=== PATIENT | male | born 1985 | race Caucasian/White ===

== ENCOUNTER 2016-11-01 16:56 | Emergency (ER) | payer OTHER ==
[2016-11-01 17:00] VITALS: BMI 24.2
[2016-11-01 17:07] VITALS: PULSE 89; TEMP 97.9; O2SAT 97
[2016-11-01] MEDS ORDERED: Oxycodone/Acetaminophen 5/325 mg Tab PO STA (17:57)
--- NOTE | 2016-11-01 18:09 | ED PDOC ---
Arrival/HPI - General Chief Complaint: Upper Extremity Problem/Injury Time Seen by Provider: 11/01/16 17:48 Historian: Patient - History of Present Illness Narrative History of Present Illness (Text): 11/01/16 17:30 This 30 yo male without significant medical history, presents to this ED c/o left arm, and left lower leg pain x 3 months. Patient stated pain started about 9 months ago. Pain has been gradually worsen since onset of pain. Patient admits sciatica pain x 2 years ago, in which he had a an injection, which it relief his symptoms. Patient denies trauma, neck injury, rash, MOCK, diplopia, dysarthria, cms, n/v, cp, sob, GI/ incontinence, saddle anesthesia, urinary retention, dizziness, or abnormal gait. Melter Operator: Su Leach [id number] Time/Duration: Prior to Arrival Context: Home Past Medical History - Provider Review Nursing Documentation Reviewed: Yes - Travel History Have you recently traveled outside [place] w/in the past 3 mons?: No - Past History Past History: Non-Contributing - Musculoskeletal/Rheumatological Hx Back Pain: Yes (2 years ago) - Psychiatric Hx Substance Use: No Family/Social History - Physician Review Nursing Documentation Reviewed: Yes Family/Social History: No Known Family HX Smoking Status: occasionally smokes Hx Alcohol Use: Yes (socially) Frequency of alcohol use: Socially Hx Substance Use: Yes (2 years ago smoke herb in [place]) Allergies/Home Meds Allergies/Adverse Reactions: Allergies No Known Allergies Allergy (Verified 11/01/16 17:00) Review of Systems - Review of Systems Constitutional: Normal. absent: Fatigue, Weight Change, Fevers, Night Sweats Eyes: Normal ENT: Normal Respiratory: Normal. absent: SOB, Cough, Sputum, Wheezing Cardiovascular: Normal. absent: Chest Pain, Palpitations, Edema Gastrointestinal: Normal. absent: Abdominal Pain, Nausea, Vomiting Genitourinary Male: Normal. absent: Dysuria, Frequency, Hematuria Musculoskeletal: Other (see hpi) Skin: Normal. absent: Rash Neurological: Normal. absent: Headache, Dizziness, Focal Weakness, Gait Changes , Speech Changes, Facial Droop, Disequilibrium, Seizure Endocrine: Normal Hemo/Lymphatic: Normal Psychiatric: Normal Physical Exam Vital Signs Temp Pulse Resp BP Pulse Ox 11/01/16 19:00 16 108/65 11/01/16 17:01 97.9 F 89 17 119/73 97 Temperature: Afebrile Blood Pressure: Normal Pulse: Regular Respiratory Rate: Normal Appearance: Positive for: Well-Appearing, Non-Toxic, Comfortable Pain Distress: None Mental Status: Positive for: Alert and Oriented X 3 - Systems Exam Head: Present: Atraumatic, Normocephalic Pupils: Present: PERRL Extroacular Muscles: Present: EOMI Conjunctiva: Present: Normal Mouth: Present: Moist Mucous Membranes Neck: Present: Normal Range of Motion Respiratory/Chest: Present: Clear to Auscultation, Good Air Exchange. No: Respiratory Distress, Accessory Muscle Use, Wheezes, Retracting, Rhonchi Cardiovascular: Present: Regular Rate and Rhythm, Normal S1, S2. No: Murmurs Abdomen: Present: Normal Bowel Sounds. No: Tenderness, Distention, Peritoneal Signs, Rebound, Guarding Back: Present: Normal Inspection Upper Extremity: Present: Normal Inspection, Normal ROM, NORMAL PULSES, Neurovascularly Intact, Capillary Refill < 2s. No: Cyanosis, Edema Lower Extremity: Present: Normal Inspection, NORMAL PULSES, Normal ROM, Neurovascularly Intact, Capillary Refill < 2 s. No: Edema, CALF TENDERNESS, Temperature Abnormalties Neurological: Present: GCS=15, CN II-XII Intact, Speech Normal, Motor Func Grossly Intact, Normal Sensory Function, Normal Cerebellar Funct, Norm Deep Tendon Reflexes, Gait Normal, Memory Normal Skin: Present: Warm, Dry, Normal Color. No: Rashes Psychiatric: Present: Alert, Oriented x 3, Normal Insight, Normal Concentration Medical Decision Making ED Course and Treatment: 11/01/16 18:12 Patient came c/o left arm pain. During physical exam, patient stated left lower back pain. 11/01/16 19:18 Re-evaluation. Patient feels better. Discussed results and plan with patient who expresses understanding. All questions answered and there is agreement with the plan to discharge home with instructions. Patient stable for discharge. Return if symptoms persist or worsen. Patient understood to f/u clinic for further medical evaluation and testing Re-evaluation Time: 19:18 Reassessment Condition: Re-examined, Improved - RAD Interpretation Narrative RAD Interpretations (Text): 11/01/16 19:10 C-spine X-rays: No fx or subl. L-Spine X-rays: no fx or sublux. Radiology Orders: 11/01/16 17:58 CERVICAL SPINE >18YR W/OBLIQUE [RAD] Stat LS SPINE WITH OBL > 18 YRS OLD [RAD] Stat - Medication Orders Current Medication Orders: Discontinued Medications Ondansetron HCl (Zofran Odt) 8 mg PO STAT STA Stop: 11/01/16 17:58 Last Admin: 11/01/16 18:20 Dose: 8 mg Oxycodone/Acetaminophen (Percocet 5/325 Mg Tab) 1 tab PO STAT STA Stop: 11/01/16 17:58 Last Admin: 11/01/16 18:20 Dose: 1 tab Disposition/Present on Arrival - Present on Arrival Any Indicators Present on Arrival: No History of DVT/PE: No History of Uncontrolled Diabetes: No Urinary Catheter: No History of Decub. Ulcer: No History Surgical Site Infection Following: None - Disposition Have Diagnosis and Disposition been Completed?: Yes Diagnosis: Cervical radiculopathy, Back pain Disposition Time: 19:21 Patient Plan: Discharge Condition: IMPROVED Discharge Instructions (ExitCare): Chronic Back Pain (ED), Cervical Radiculopathy (ED) Additional Instructions: Call clinic doctor for follow up visit in 1-2 days. Take medication as instructed with food. Return to emergency if symptoms worsen. YOU NEED TO APPLY FOR [facility] BEFORE GOING TO CLINIC Prescriptions: Acetaminophen with Codeine [Tylenol with Codeine #3 Tablet] 1 each PO Q6H PRN # 15 tablet PRN Reason: Pain, Severe (8-10) Methylprednisolone [Medrol Dose Pack (21 tabs)] 4 mg PO DAILY #21 tab Referrals: [employer] [facility] [Outside] - Follow up with primary [facility] [Outside] - Follow up with primary
[2016-11-01 19:15] VITALS: BP 108/65; RESP 16
--- NOTE | 2016-11-02 11:32 | RAD ---
PROCEDURE: Cervical Spine Radiographs. HISTORY: Pain. COMPARISON: None. FINDINGS: BONES: Vertebral bodies maintained in height. Normal alignment maintained. Atlantoaxial articulation intact. Technically limited evaluation of odontoid process. DISC SPACES: Normal. SOFT TISSUES: Normal. No prevertebral soft tissue swelling. OTHER FINDINGS: None. IMPRESSION: No fracture/dislocation.
--- NOTE | 2016-11-02 11:33 | RAD ---
PROCEDURE: Radiographs of the Lumbar Spine. HISTORY: pain COMPARISON: No prior. FINDINGS: BONES: Normal alignment. No listhesis. No fracture. DISC SPACES: Unremarkable. OTHER FINDINGS: None. IMPRESSION: Unremarkable radiographs of the lumbar spine.
== END 2016-11-01 19:35 | disposition home or self-care (01) ==
LOC: ED 16:56
DX: M54.12 Radiculopathy, cervical region (principal); M54.9 Dorsalgia, unspecified

== ENCOUNTER 2016-11-14 12:52 | Emergency (ER) | payer OTHER ==
[2016-11-14 13:11] VITALS: BMI 22.8
[2016-11-14 13:13] VITALS: TEMP 98.8
--- NOTE | 2016-11-14 13:15 | ED PDOC ---
Arrival/HPI - General Chief Complaint: Abnormal Skin Integrity Time Seen by Provider: 11/14/16 13:15 Historian: Patient - History of Present Illness Narrative History of Present Illness (Text): 11/14/16 13:15 30 y/o male, pmh including cervical radiculopathy, nkda, c/o cyst removal from the perianal x 4 months. Pt. stated that he has a bump near the rectum region for 4-5 months, on and off pain, never have fever or chills, size never growing in size, no difficulty urinating or passing the stool, no fever or chills, no night sweat, no other medical or psychological complaints. Past Medical History - Provider Review Nursing Documentation Reviewed: Yes - Past History Past History: Non-Contributing - Musculoskeletal/Rheumatological Hx Back Pain: Yes (2 years ago) - Psychiatric Hx Substance Use: Yes (2 years ago smoke herb in [place]) Family/Social History - Physician Review Nursing Documentation Reviewed: Yes Family/Social History: Unknown Family HX Smoking Status: Never Smoked Hx Alcohol Use: Yes (socially) Frequency of alcohol use: Socially Hx Substance Use: Yes (2 years ago smoke herb in [place]) Allergies/Home Meds Allergies/Adverse Reactions: Allergies No Known Allergies Allergy (Verified 11/01/16 17:00) Review of Systems - Review of Systems Constitutional: absent: Fatigue, Fevers Eyes: absent: Vision Changes ENT: absent: Hearing Changes Respiratory: absent: SOB, Cough Cardiovascular: absent: Chest Pain Gastrointestinal: absent: Abdominal Pain, Vomiting, Appetite Changes Musculoskeletal: absent: Arthralgias, Back Pain Skin: Skin Lesions. absent: Rash, Pruritis, Laceration, Abscess, Ulcer, Cellulitis Neurological: absent: Headache Physical Exam Vital Signs Reviewed: Yes Vital Signs Temp Pulse Resp BP Pulse Ox 11/14/16 13:13 98.8 F 87 16 116/82 98 Temperature: Afebrile Blood Pressure: Normal Pulse: Regular Respiratory Rate: Normal Appearance: Positive for: Well-Appearing, Non-Toxic, Comfortable Pain Distress: Mild Mental Status: Positive for: Alert and Oriented X 3 - Systems Exam Head: Present: Atraumatic, Normocephalic Pupils: Present: PERRL Extroacular Muscles: Present: EOMI Conjunctiva: Present: Normal Mouth: Present: Moist Mucous Membranes Neck: Present: Normal Range of Motion Respiratory/Chest: Present: Clear to Auscultation, Good Air Exchange. No: Respiratory Distress, Accessory Muscle Use Cardiovascular: Present: Regular Rate and Rhythm, Normal S1, S2. No: Murmurs Abdomen: Present: Normal Bowel Sounds. No: Tenderness, Distention, Peritoneal Signs Rectal: Present: Normal Rectal Tone, Other (There is visible hard nodule less than 0.2cm diameter non-fluctuant nodule with mild skin abrasion, no fluctuant abscess. ). No: Occult Blood, Rectal Tenderness, Gross Blood, Melena, Hemorrhoids, Fissures Back: Present: Normal Inspection Upper Extremity: Present: Normal Inspection. No: Cyanosis, Edema Lower Extremity: Present: Normal Inspection. No: Edema Neurological: Present: GCS=15, CN II-XII Intact, Speech Normal Skin: Present: Warm, Dry, Normal Color. No: Rashes Psychiatric: Present: Alert, Oriented x 3, Normal Insight, Normal Concentration Medical Decision Making ED Course and Treatment: 11/14/16 13:39 -I performed the bed side sonogram which show there is no fluid fill cavity and physical examination show no fluctuancy. - PA / FREIGHT CONDUCTOR / Resident Statement MD/DO has reviewed & agrees with the documentation as recorded. Disposition/Present on Arrival - Present on Arrival Any Indicators Present on Arrival: No History of DVT/PE: No History of Uncontrolled Diabetes: No Urinary Catheter: No History of Decub. Ulcer: No History Surgical Site Infection Following: None - Disposition Have Diagnosis and Disposition been Completed?: Yes Diagnosis: Perianal lesion Disposition: HOME/ ROUTINE Disposition Time: 13:40 Patient Plan: Discharge Condition: GOOD Additional Instructions: Discharge home with keflex, bactrim ds, motrin, follow up with your own pmd and general surgeon within 2 days, return to the ER for any new or worsening signs or symptoms. Prescriptions: Cephalexin [cephalexin] 500 mg PO QID #40 cap Ibuprofen [Motrin Tab] 600 mg PO QID PRN #25 tab PRN Reason: Other Sulfamethoxazole/Trimethoprim [Bactrim DS 800 mg-160 mg] 1 tab PO BID #20 tab Referrals: Vic Argueta, [Primary Care Provider] - Follow up with primary Hitesh Bradford MD [Staff Provider] - [place] up with primary [facility] - Follow up with primary Forms: [employer] ([place]), WORK NOTE
[2016-11-14 17:40] VITALS: BP 122/76; PULSE 73; RESP 18; O2SAT 100
== END 2016-11-14 14:05 | disposition home or self-care (01) ==
LOC: ED 12:52
DX: K62.89 Other specified diseases of anus and rectum (principal)

== ENCOUNTER 2017-01-23 12:44 | Emergency (ER) | payer OTHER ==
[2017-01-23 12:44] VITALS: BMI 22.8
[2017-01-23 13:07] VITALS: TEMP 98.3; O2SAT 98
--- NOTE | 2017-01-23 13:58 | ED PDOC ---
Arrival/HPI - General Chief Complaint: ENT Problem Time Seen by Provider: 01/23/17 12:50 - History of Present Illness Narrative History of Present Illness (Text): 31 year old Uzbek speaking gentleman who presents with bilateral ear pain for one month. The ear pain worsens with high pitch noise, changes in atmospheric pressure, and upon awakening. He denies any sore throat, pain with swallowing, rhinorrhea, ottorhea, fever, or chills. He also complains of 6 months of left upper and lower extremity radicular symptoms. The shoulder pain worsens with movement while the left hip pain is intermittent, radiates down the left leg to the knee, and worsens with hip flexion. He also describes pain along the distribution of his belt, but denies any rash that fits a dermatomal pattern. [employer] were utilized for this encounter. 01/23/17 14:56 Past Medical History - Provider Review Nursing Documentation Reviewed: Yes - Past History Past History: Non-Contributing - Cardiac Hx Cardiac Disorders: No - Pulmonary Hx Respiratory Disorders: No - Neurological Hx Neurological Disorder: No - HEENT Hx HEENT Disorder: No - Renal Hx Renal Disorder: Yes Other/Comment: right kidney - Endocrine/Metabolic Hx Endocrine Disorders: No - Hematological/Oncological Hx Blood Disorders: No - Musculoskeletal/Rheumatological Hx Back Pain: Yes (2 years ago) - Gastrointestinal Hx Gastrointestinal Disorders: No - Genitourinary/Gynecological Hx Genitourinary Disorders: No - Psychiatric Hx Substance Use: Yes (2 years ago smoke herb in [place]) - Anesthesia Hx Anesthesia: No Hx Anesthesia Reactions: No Hx Malignant Hyperthermia: No Family/Social History - Physician Review Nursing Documentation Reviewed: Yes Family/Social History: No Known Family HX Smoking Status: Never Smoked Hx Alcohol Use: Yes (socially) Hx Substance Use: Yes (2 years ago smoke herb in [place]) Allergies/Home Meds Allergies/Adverse Reactions: Allergies No Known Allergies Allergy (Verified 11/01/16 17:00) Review of Systems - Review of Systems Constitutional: absent: Fatigue, Weight Change, Fevers Eyes: Normal. absent: Vision Changes, Photophobia ENT: Hearing Changes, Tinnitus, TMJ Pain. absent: Sore Throat, Rhinorrhea Respiratory: Normal. absent: SOB, Cough, Sputum, Wheezing Cardiovascular: Normal. absent: Chest Pain, Palpitations, Edema Gastrointestinal: Normal. absent: Abdominal Pain, Constipation, Diarrhea Musculoskeletal: Arthralgias Skin: Normal. absent: Rash, Skin Lesions Neurological: Gait Changes (antalgic gait). absent: Headache, Dizziness, Focal Weakness Hemo/Lymphatic: absent: Easy Bleeding, Easy Bruising Psychiatric: absent: Anxiety, Depression Physical Exam Vital Signs Temp Pulse Resp BP Pulse Ox 01/23/17 15:27 93 H 17 115/80 98 01/23/17 14:30 91 H 17 111/80 98 01/23/17 12:54 98.3 F 98 H 18 110/71 98 Temperature: Afebrile Blood Pressure: Normal Pulse: Regular Respiratory Rate: Normal Appearance: Positive for: Well-Appearing, Non-Toxic Pain Distress: Mild Mental Status: Positive for: Alert and Oriented X 3 - Systems Exam Head: Present: Atraumatic, Normocephalic Pupils: Present: PERRL Extroacular Muscles: Present: EOMI Conjunctiva: Present: Normal Ears: Present: Erythema (left), TM Bulging, Fluid, Other (left TM is erythematous with effusion and some bulging.) Mouth: Present: Other (posterior pharynx is without erythema and exudate) Pharnyx: No: ERYTHEMA, EXUDATE Neck: No: Lymphadenopathy Respiratory/Chest: Present: Clear to Auscultation, Good Air Exchange. No: Respiratory Distress Cardiovascular: Present: Regular Rate and Rhythm, Normal S1, S2 Upper Extremity: Present: Normal ROM, NORMAL PULSES. No: Swelling, Erythema Lower Extremity: Present: Normal Inspection Neurological: Present: CN II-XII Intact, Speech Normal, Motor Func Grossly Intact, Normal Sensory Function, Normal Cerebellar Funct, Norm Deep Tendon Reflexes, Other (MSR ) Skin: Present: Warm, Dry, Normal Color Lymphatic: No: Cervical Adenopathy Psychiatric: Present: Alert, Oriented x 3, Normal Insight Medical Decision Making ED Course and Treatment: Patient agreeable to taking antibiotics for Acute Otitis Media with effusion and steroids for current aggravation of his radicular symptoms. 01/23/17 15:48 - Medication Orders Current Medication Orders: Discontinued Medications Dexamethasone (Decadron Inj) 10 mg IM STAT STA Stop: 01/23/17 14:47 Last Admin: 01/23/17 15:04 Dose: 10 mg IM Administration Charges Document 01/23/17 15:04 SF (Rec: 01/23/17 15:04 SF [facility] [id number]) Injection Site MAR Injection Site Left Deltoid Charges for Administration # of IM Administrations 1 Disposition/Present on Arrival - Present on Arrival Any Indicators Present on Arrival: No History of DVT/PE: No History of Uncontrolled Diabetes: No Urinary Catheter: No History of Decub. Ulcer: No History Surgical Site Infection Following: None - Disposition Have Diagnosis and Disposition been Completed?: Yes Diagnosis: Acute otitis media, Radicular pain in left arm Disposition: HOME/ ROUTINE Disposition Time: 15:30 Condition: GOOD Discharge Instructions (ExitCare): Otitis Media (ED), Cervical Radiculopathy ( ED) Additional Instructions: 1) Take full course of antibiotics and other medication as directed. 2) Please return to the ED for any worsening of symptoms. Prescriptions: Amoxicillin/Clavulanate [Augmentin 875 MG-125 MG] 1 tab PO BID #14 tab Methylprednisolone [Medrol Dose Pack (21 tabs)] 4 mg PO ACHS #21 mg Referrals: PCP,NO [Primary Care Provider] - Follow up with primary Forms: [employer] ([place])
[2017-01-23 15:27] VITALS: RESP 17
[2017-01-23 15:29] VITALS: BP 115/80; PULSE 93
== END 2017-01-23 15:28 | disposition home or self-care (01) ==
LOC: ED 12:44
DX: H66.90 Otitis media, unspecified, unspecified ear (principal); M79.602 Pain in left arm
CPT/HCPCS: 96372; 99284; J1100

== ENCOUNTER 2017-03-29 18:19 | Emergency (ER) | payer OTHER ==
[2017-03-29 18:34] VITALS: BMI 23.6
--- NOTE | 2017-03-29 20:28 | ED PDOC ---
Arrival/HPI - General Historian: Patient - History of Present Illness Time/Duration: Other Symptom Onset: Gradual Symptom Course: Unchanged Activities at Onset: Rest - General Chief Complaint: Pain, Chronic Time Seen by Provider: 03/29/17 19:25 - History of Present Illness Narrative History of Present Illness (Text): Patient is a 31 year old, Welsh-speaking male with stated PMHx of cervical radiculopathy and anal pain presents complaining of pain secondary perianal abscess/lesion which he calls a fistula. Patient states he has had this pain for over a year and has visited the E.R twice for the same problem. He denies using any modalities to treat the pain except for the "capsules" he received during his last E.R visit. Patient states that the abscess drains daily and his having trouble sitting down. Patient also complains of subjective fever ( 10 days ago, which has resolved), dysuria/burning in the hip during urination and dizziness. Additionally, patient complains of ear fullness and hearing loss x 5 months. Patient has been seen in the ED for the same issue and was diagnosed with Ottitis Media, prescribed Augmentin and was asked to follow up with PMD and ENT. Patient stated he did not see specialist due to financial problems. Patient denies any chest pain, abdominal pain, SOB, nausea, or vomiting. (Robin Holm) Past Medical History - Provider Review Nursing Documentation Reviewed: Yes - Past History Past History: Non-Contributing - Infectious Disease Hx of Infectious Diseases: None - Cardiac Hx Cardiac Disorders: No - Pulmonary Hx Respiratory Disorders: No - Neurological Hx Neurological Disorder: No - HEENT Hx HEENT Disorder: No - Renal Hx Renal Disorder: Yes Other/Comment: right kidney - Endocrine/Metabolic Hx Endocrine Disorders: No - Hematological/Oncological Hx Blood Disorders: No - Musculoskeletal/Rheumatological Hx Back Pain: Yes (2 years ago) - Gastrointestinal Hx Gastrointestinal Disorders: No - Genitourinary/Gynecological Hx Genitourinary Disorders: No - Psychiatric Hx Substance Use: Yes (2 years ago smoke herb in [place]) - Anesthesia Hx Anesthesia: No Hx Anesthesia Reactions: No Hx Malignant Hyperthermia: No Family/Social History - Physician Review Nursing Documentation Reviewed: Yes Family/Social History: No Known Family HX Smoking Status: Never Smoked Hx Alcohol Use: Yes (socially) Hx Substance Use: Yes (2 years ago smoke herb in [place]) Allergies/Home Meds Allergies/Adverse Reactions: Allergies No Known Allergies Allergy (Verified 11/01/16 17:00) Review of Systems - Physician Review All systems were reviewed & negative as marked: Yes - Review of Systems ENT: Hearing Changes Respiratory: Normal. absent: SOB Cardiovascular: Normal. absent: Chest Pain Physical Exam Vital Signs Reviewed: Yes Temperature: Afebrile Blood Pressure: Normal Pulse: Tachycardic Respiratory Rate: Normal Appearance: Positive for: Uncomfortable Pain Distress: Moderate Mental Status: Positive for: Alert and Oriented X 3 - Systems Exam Head: Present: Atraumatic, Normocephalic Pupils: Present: PERRL Extroacular Muscles: Present: EOMI Conjunctiva: Present: Normal Ears: Present: Other (severe cerumen impaction. TM not visualized. ) Mouth: Present: Moist Mucous Membranes Pharnyx: Present: Normal Nose (External): Present: Atraumatic Neck: Present: Normal Range of Motion Respiratory/Chest: Present: Clear to Auscultation, Good Air Exchange. No: Wheezes Cardiovascular: Present: Regular Rate and Rhythm, Normal S1, S2. No: Murmurs Abdomen: Present: Normal Bowel Sounds. No: Tenderness, Distention, Peritoneal Signs Rectal: Present: Other Upper Extremity: Present: Capillary Refill < 2s. No: Edema Neurological: Present: GCS=15, Speech Normal Skin: Present: Other (left sided perianal tenderness with .5x.5 cm wound with surrounding erythema. No draiange) Lymphatic: Present: Cervical Adenopathy Psychiatric: Present: Alert, Oriented x 3 Vital Signs Temp Pulse Resp BP Pulse Ox 03/29/17 22:00 98.6 F 70 15 120/68 100 03/29/17 20:19 98.7 F 68 16 123/62 100 03/29/17 18:35 98.6 F 96 H 20 128/84 98 03/29/17 18:19 98.6 F 96 H 20 128/84 98 Medical Decision Making Reassessment Condition: Unchanged - Lab Interpretations I have reviewed the lab results: Yes - RAD Interpretation Gps Navigation Installer: Radiologist ED Course and Treatment: 03/29/17 22:51 Patient seen and examined with medical transcription. Afebrile, nontoxic appearing. Exam NOT consistent with sepsis. Abdomen soft and nontender. CT reveals no deep abscess, on exam, mild soft tissue erythema, currently no fluctuant mass, no rectal pain, no rectal bleeding. No urinary retention. Stressed need for ENT follow-up, although currently neuro intact with no focal motor or sensory deficits. Stressed need for follow-up with his pmd and surgical follow-up. No drainable abscess at this time. Will d/c with abx, f/u as reviewed specifically with top spotter. (Randee Spear) 31 year old male with PMHx of cervical radiculapathy and perianal abscess presents with painful superficial perianal abscess --CBC/CMP --UA --Pelvis CT Patient will need to establish care at one of [facility]. Will refer upon discharge. --Reassess and Disposition Reassesment: Urinalysis, CBC, CMP unremarkable. Pelvis CT MPRESSION: No evidence of perirectal abscess. Dictated By: Lne Altamirano MD Dictated Date/Time: 03/29/172209 Signed By: Len Altamirano MD Date Signed: 2209 Transcribed By: DARÍO Transcribe Date/Time : 03/29/17 Had thorough conversation with patient using interpretation system explaining his diagnoses and what we are doing to treat it. Advised patient to use Neosporin with lidocaine on the lesion to help with the pain. Patient also told to follow up at the [facility]. We will prescribe 7 days of Bactrim. Patient is stable for discharge. Gps Navigation Installer: Christa Galvin [id number] (Robin Holm) - Lab Interpretations Lab Results: 03/29/17 20:00 03/29/17 20:00 Lab Results 03/29/17 20:00: Urine Color Yellow, Urine Appearance Clear, Urine pH 7.0, Ur Specific [place] 1.010, Urine Protein Negative, Urine Glucose (UA) Negative, Urine Ketones Negative, Urine Blood Negative, Urine Nitrate Negative, Urine Bilirubin Negative, Urine Urobilinogen 0.2, Ur Leukocyte Esterase Negative 03/29/17 20:00: Sodium 140, Potassium 3.8, Chloride 105, Carbon Dioxide 22, Anion Gap 17, BUN 13, Creatinine 0.8, Est GFR ( Amer) > 60, Est GFR (Non- Af Amer) > 60, Random Glucose 94, Calcium 9.4, Total Bilirubin 0.6, AST 29, ALT 26, Alkaline Phosphatase 56, Total Protein 8.4 H, Albumin 5.1 H, Globulin 3.3, Albumin/Globulin Ratio 1.5 03/29/17 20:00: WBC 5.3, RBC 5.33, Hgb 14.8, Hct 43.8, MCV 82.2, MCH 27.8, MCHC 33.8, RDW 12.9, Plt Count 212, MPV 10.1, Gran % 27.9 L, Lymph % (Auto) 60.4 H, [place] % (Auto) 8.1 H, Eos % (Auto) 3.2, Baso % (Auto) 0.4, Gran # 1.49, Lymph # 3.2, [place] # 0.4, Eos # 0.2, Baso # 0.02 - RAD Interpretation Radiology Orders: 03/29/17 20:23 PELVIS W/O PO OR IV CONTRAST [CT] Stat Disposition/Present on Arrival - Present on Arrival Any Indicators Present on Arrival: No History of DVT/PE: No History of Uncontrolled Diabetes: No Urinary Catheter: No History of Decub. Ulcer: No History Surgical Site Infection Following: None - Disposition Have Diagnosis and Disposition been Completed?: Yes Disposition Time: 22:30 Patient Plan: Discharge - Disposition Diagnosis: Abscess of buttock Disposition: HOME/ ROUTINE Patient Problems: Current Active Problems Problem Status Onset Cellulitis of buttock Acute Condition: FAIR Discharge Instructions (ExitCare): Cellulitis (ED) Additional Instructions: Please follow up at the [facility]. The contact information and address is located in your discharge paperwork . Prescriptions: Sulfamethoxazole/Trimethoprim [Bactrim DS 800 mg-160 mg] 1 tab PO BID #14 tab Referrals: Vic Argueta, [Primary Care Provider] - Follow up with primary [facility] [Outside] - Follow up with primary Forms: [employer] (Mexican)
[2017-03-29 20:49] LABS: URINE BILIRUBIN NEGATIVE (NEGATIVE); URINE BLOOD NEGATIVE (NEGATIVE); URINE GLUCOSE (UA) NEGATIVE (NEGATIVE); URINE KETONE NEGATIVE (NEGATIVE); URINE LEUKOCYTE ESTERASE NEGATIVE Leu/uL (NEGATIVE); URINE PROTEIN NEGATIVE mg/dL (<30 mg/dL); URINE UROBILINOGEN 0.2 E.U./dL (<1 E.U./dL)
[2017-03-29 20:50] LABS: BASO # 0.02 K/mm3 (0.0-2.0); BASO % 0.4 % (0.0-3.0); EOS # 0.2 (0.0-0.7); EOS % 3.2 % (1.5-5.0); GRAN # 1.49 (1.4-6.5); GRAN % 27.9 % (50.0-68.0); HEMATOCRIT 43.8 % (42.0-52.0); LYMPH # 3.2 (1.2-3.4); LYMPH % 60.4 % (22.0-35.0); MEAN CELL VOLUME 82.2 fl (80.0-105.0); MEAN CORPUSCULAR HEMOGLOBIN 27.8 pg (25.0-35.0); MEAN CORPUSCULAR HGB CONC 33.8 g/dl (31.0-37.0); MEAN PLATELET VOLUME 10.1 fl (7.0-11.0); MONO # 0.4 (0.1-0.6); MONO % 8.1 % (1.0-6.0); RED CELL DISTRIBUTION WIDTH 12.9 % (11.5-14.5); WHITE BLOOD COUNT 5.3 10^3/ul (4.5-11.0)
[2017-03-29 20:51] LABS: URINE APPEARANCE CLEAR (CLEAR); URINE COLOR YELLOW (YELLOW)
[2017-03-29 21:17] LABS: ALKALINE PHOSPHATASE 56 U/L (38-126); ALT/SGPT 26 U/L (7-56); AST/SGOT 29 U/L (17-59); BILIRUBIN,TOTAL 0.6 mg/dL (0.2-1.3); BLOOD UREA NITROGEN 13 mg/dL (7-21); CALCIUM 9.4 mg/dL (8.4-10.5); CARBON DIOXIDE 22 mmol/L (21-33); CHLORIDE 105 mmol/L (98-107); GFR AFRICAN-AMERICAN > 60; GLUCOSE,RANDOM 94 mg/dL (70-110); POTASSIUM 3.8 mmol/L (3.6-5.0); SODIUM 140 mmol/L (132-148); TOTAL PROTEIN 8.4 g/dL (5.8-8.3)
[2017-03-29 21:49] LABS: ALB/GLOB RATIO 1.5 (1.1-1.8)
--- NOTE | 2017-03-29 22:11 | CT ---
EXAM: CT Pelvis Without Intravenous Contrast CLINICAL HISTORY: 31 years old, male; Condition or disease; Abscess; Rectal; Additional info: Eval for perirectal abscess TECHNIQUE: Axial computed tomography images of the pelvis without intravenous contrast. All CT scans at this facility use one or more dose reduction techniques, viz.: automated exposure control; ma/kV adjustment per patient size (including targeted exams where dose is matched to indication; i.e. head); or iterative reconstruction technique. Coronal and sagittal reformatted images were created and reviewed. COMPARISON: No relevant prior studies available. FINDINGS: Bowel: Unremarkable. No obstruction. No mucosal thickening. Appendix: No findings to suggest acute appendicitis. Intraperitoneal space: Unremarkable. No free air. No significant fluid collection. Bladder: Unremarkable. No stones. Reproductive: Unremarkable as visualized. Bones/joints: No acute fracture. No dislocation. Soft tissues: Soft tissue stranding in the perineum. No discrete abscess. Vasculature: Unremarkable. No lower abdominal aortic aneurysm. Lymph nodes: Unremarkable. No enlarged lymph nodes. IMPRESSION: No evidence of perirectal abscess.
[2017-03-29 22:34] VITALS: BP 120/68; PULSE 70; RESP 15; TEMP 98.6; O2SAT 100
== END 2017-03-29 23:12 | disposition home or self-care (01) ==
LOC: ED 18:19
DX: L02.31 Cutaneous abscess of buttock (principal)

== ENCOUNTER 2017-07-07 17:25 | Emergency (ER) | payer OTHER ==
[2017-07-07 17:37] VITALS: BMI 25.9
[2017-07-07 17:53] VITALS: BP 103/66; PULSE 75; RESP 18; TEMP 97.9; O2SAT 97
--- NOTE | 2017-07-07 18:21 | ED PDOC ---
Arrival/HPI - General Chief Complaint: Abdominal Pain Time Seen by Provider: 07/07/17 18:15 Historian: Patient - History of Present Illness Narrative History of Present Illness (Text): 07/07/17 18:10 This 31 yo male who denies pmh, presents to this ED c/o left flank pain x 2 months. Patient stated pain has been intermittent, and associated with soft stool movement. Patient noted urinary frequency. Patient also stated he was seen at [facility] for back pain, prior onset of flank pain. Patient denies sob, cp, nausea, vomiting, rectal bleeding, melena, hematuria, dizziness, or abnormal gait. Assistant To The Ceo: Malgorzata [id number] Time/Duration: Other (see hpi) Context: Home Past Medical History - Provider Review Nursing Documentation Reviewed: Yes - Past History Past History: Non-Contributing - Infectious Disease Hx of Infectious Diseases: None - Cardiac Hx Cardiac Disorders: No - Pulmonary Hx Respiratory Disorders: No - Neurological Hx Neurological Disorder: No - HEENT Hx HEENT Disorder: No - Renal Hx Renal Disorder: Yes Other/Comment: right kidney - Endocrine/Metabolic Hx Endocrine Disorders: No - Hematological/Oncological Hx Blood Disorders: No - Musculoskeletal/Rheumatological Hx Back Pain: Yes (2 years ago) - Gastrointestinal Hx Gastrointestinal Disorders: No - Genitourinary/Gynecological Hx Genitourinary Disorders: No - Psychiatric Hx Substance Use: Yes (2 years ago smoke herb in [place]) - Anesthesia Hx Anesthesia: No Hx Anesthesia Reactions: No Hx Malignant Hyperthermia: No Family/Social History - Physician Review Nursing Documentation Reviewed: Yes Family/Social History: Other (noncontributory) Smoking Status: Never Smoked Hx Alcohol Use: Yes (socially) Hx Substance Use: Yes (2 years ago smoke herb in [place]) Allergies/Home Meds Allergies/Adverse Reactions: Allergies No Known Allergies Allergy (Verified 07/07/17 17:42) Review of Systems - Review of Systems Constitutional: Normal. absent: Fatigue, Weight Change, Fevers Eyes: Normal ENT: Normal Respiratory: Normal Cardiovascular: Normal Gastrointestinal: Abdominal Pain, Diarrhea. absent: Nausea, Vomiting Genitourinary Male: Dysuria. absent: Frequency, Hematuria Musculoskeletal: Normal. absent: Back Pain Skin: Normal. absent: Rash Neurological: Normal Endocrine: Normal Hemo/Lymphatic: Normal Psychiatric: Normal Physical Exam Vital Signs Temp Pulse Resp BP Pulse Ox 07/07/17 17:48 97.9 F 75 18 103/66 97 07/07/17 17:44 97.9 F 82 18 103/66 97 Temperature: Afebrile Blood Pressure: Normal Pulse: Regular Respiratory Rate: Normal Appearance: Positive for: Well-Appearing, Non-Toxic, Comfortable Pain Distress: None Mental Status: Positive for: Alert and Oriented X 3 - Systems Exam Head: Present: Atraumatic, Normocephalic Pupils: Present: PERRL Extroacular Muscles: Present: EOMI Conjunctiva: Present: Normal Mouth: Present: Moist Mucous Membranes Neck: Present: Normal Range of Motion Respiratory/Chest: Present: Clear to Auscultation, Good Air Exchange. No: Respiratory Distress, Accessory Muscle Use Cardiovascular: Present: Regular Rate and Rhythm, Normal S1, S2. No: Murmurs Abdomen: Present: Tenderness ((+) mild left flank tenderness), Normal Bowel Sounds. No: Distention, Peritoneal Signs, Rebound, Guarding Back: Present: Normal Inspection. No: CVA Tenderness Upper Extremity: Present: Normal Inspection, Normal ROM. No: Cyanosis, Edema Lower Extremity: Present: Normal Inspection, Normal ROM. No: Edema Neurological: Present: GCS=15, CN II-XII Intact, Speech Normal, Motor Func Grossly Intact, Normal Sensory Function, Normal Cerebellar Funct, Gait Normal Skin: Present: Warm, Dry, Normal Color. No: Rashes Psychiatric: Present: Alert, Oriented x 3, Normal Insight, Normal Concentration Medical Decision Making ED Course and Treatment: 07/07/17 19:44 CT Scan ABD PELVIS W/O PO OR IV CONT Exam Date: 07/07/17 FINDINGS: Limitations: Lack of intravenous contrast. Motion artifact - mild. Lower thorax: Minimal atelectasis/scarring. ABDOMEN: Liver: Unremarkable. Gallbladder and bile ducts: No calcified stones. No ductal dilation. Pancreas: Unremarkable. No ductal dilation. Spleen: No splenomegaly. Adrenals: No mass. Kidneys and ureters: Small calculus within RIGHT kidney. No hydronephrosis. Stomach and bowel: Segmental areas of probable underdistention of LEFT colon. No definite mural thickening. No obstruction. Appendix: No findings to suggest acute appendicitis. PELVIS: Bladder: Unremarkable. No stones. Reproductive: Unremarkable as visualized. ABDOMEN and PELVIS: Intraperitoneal space: No significant fluid collection. No free air. Bones/joints: No acute fracture. Soft tissues: Minimal gynecomastia. Tiny umbilical hernia containing fat. Vasculature: Unremarkable. No aneurysm. Lymph nodes: No pathologically enlarged lymph nodes. IMPRESSION: 1. Nonobstructing renal calculus. 2. Incidental/non-acute findings are described above. 07/07/17 19:42 Re-evaluation Time: 19:44 Reassessment Condition: Re-examined, Improved - Lab Interpretations Lab Results: 07/07/17 19:00 07/07/17 19:00 Lab Results 07/07/17 19:08: Urine Color Yellow, Urine Appearance Sl cloudy, Urine pH 6.0, Ur Specific [place] >= 1.030, Urine Protein Trace H, Urine Glucose (UA) Negative , Urine Ketones Trace H, Urine Blood Large H, Urine Nitrate Negative, Urine Bilirubin Negative, Urine Urobilinogen 0.2, Ur Leukocyte Esterase Negative, Urine RBC 5 - 10, Urine WBC 0 - 2, Ur Epithelial Cells 1 - 3, Calcium Oxalate Crystal Many, Urine Bacteria Few 07/07/17 19:00: Sodium 142, Potassium 4.1, Chloride 105, Carbon Dioxide 27, Anion Gap 14, BUN 15, Creatinine 0.8, Est GFR ( Amer) > 60, Est GFR (Non- Af Amer) > 60, Random Glucose 89, Calcium 9.4, Total Bilirubin 0.6, AST 25, ALT 24, Alkaline Phosphatase 54, Total Protein 7.2, Albumin 4.3, Globulin 3.0, Albumin/Globulin Ratio 1.4 07/07/17 19:00: WBC 5.0, RBC 5.12, Hgb 13.7 L, Hct 42.0, MCV 82.0, MCH 26.8, MCHC 32.6, RDW 12.8, Plt Count 223, MPV 9.8, Gran % 26.5 L, Lymph % (Auto) 62.7 H, [place] % (Auto) 7.6 H, Eos % (Auto) 3.0, Baso % (Auto) 0.2, Gran # 1.33 L, Lymph # (Auto) 3.2, [place] # (Auto) 0.4, Eos # (Auto) 0.2, Baso # (Auto) 0.01 - RAD Interpretation Narrative RAD Interpretations (Text): 07/07/17 19:43 CT Scan ABD PELVIS W/O PO OR IV CONT Exam Date: 07/07/17 FINDINGS: Limitations: Lack of intravenous contrast. Motion artifact - mild. Lower thorax: Minimal atelectasis/scarring. ABDOMEN: Liver: Unremarkable. Gallbladder and bile ducts: No calcified stones. No ductal dilation. Pancreas: Unremarkable. No ductal dilation. Spleen: No splenomegaly. Adrenals: No mass. Kidneys and ureters: Small calculus within RIGHT kidney. No hydronephrosis. Stomach and bowel: Segmental areas of probable underdistention of LEFT colon. No definite mural thickening. No obstruction. Appendix: No findings to suggest acute appendicitis. PELVIS: Bladder: Unremarkable. No stones. Reproductive: Unremarkable as visualized. ABDOMEN and PELVIS: Intraperitoneal space: No significant fluid collection. No free air. Bones/joints: No acute fracture. Soft tissues: Minimal gynecomastia. Tiny umbilical hernia containing fat. Vasculature: Unremarkable. No aneurysm. Lymph nodes: No pathologically enlarged lymph nodes. IMPRESSION: 1. Nonobstructing renal calculus. 2. Incidental/non-acute findings are described above. 07/07/17 19:42 Radiology Orders: 07/07/17 18:16 ABD & PELVIS W/O PO OR IV CONT [CT] Stat - Medication Orders Current Medication Orders: Discontinued Medications Ketorolac Tromethamine (Toradol) 15 mg IVP STAT STA Stop: 07/07/17 18:17 Last Admin: 07/07/17 18:48 Dose: 15 mg MAR Pain Assessment Document 07/07/17 18:48 OCS (Rec: 07/07/17 18:48 OCS [id number]) Pain Reassessment Is this a pain reassessment? No Sleep Is patient sleeping during reassessment? No Presence of Pain Presence of Pain Yes Pain Scale Used Pain Scale Used Numeric Location Left, Right or Bilateral Left Pain Location Body Site Abdomen Description Description Constant Intensity of Pain at present 6 Aggravating Factors ADL's IVP Administration Document 07/07/17 18:48 OCS (Rec: 07/07/17 18:48 OCS [id number]) Charges for Administration # of IVP Administrations 1 Disposition/Present on Arrival - Present on Arrival Any Indicators Present on Arrival: No History of DVT/PE: No History of Uncontrolled Diabetes: No Urinary Catheter: No History of Decub. Ulcer: No History Surgical Site Infection Following: None - Disposition Have Diagnosis and Disposition been Completed?: Yes Diagnosis: Nonspecific abdominal pain Disposition: HOME/ ROUTINE Disposition Time: 19:46 Patient Plan: Discharge Condition: GOOD Discharge Instructions (ExitCare): Flank Pain (DC) Additional Instructions: Call clinic for follow up visit . Take medication as instructed. Return to emergency if symptoms worsen. Prescriptions: Famotidine [Pepcid] 40 mg PO DAILY #10 tablet Ibuprofen [Motrin] 400 mg PO Q8H PRN #20 tab PRN Reason: Pain, Severe (8-10) Referrals: PCP,NO [Primary Care Provider] - Follow up with primary [facility] [Outside] - Follow up with primary [facility] [place] [Outside] - Follow up with primary Forms: [email or web address] (Ukrainian)
[2017-07-07 19:15] LABS: BASO # 0.01 K/mm3 (0.0-2.0); BASO % 0.2 % (0.0-3.0); EOS # 0.2 (0.0-0.7); GRAN # 1.33 (1.4-6.5); GRAN % 26.5 % (50.0-68.0); HEMOGLOBIN 13.7 g/dL (14.0-18.0); LYMPH # 3.2 (1.2-3.4); LYMPH % 62.7 % (22.0-35.0); MEAN CORPUSCULAR HEMOGLOBIN 26.8 pg (25.0-35.0); MEAN CORPUSCULAR HGB CONC 32.6 g/dl (31.0-37.0); MEAN PLATELET VOLUME 9.8 fl (7.0-11.0); MONO # 0.4 (0.1-0.6); MONO % 7.6 % (1.0-6.0); RBC 5.12 10^6/uL (3.5-6.1); RED CELL DISTRIBUTION WIDTH 12.8 % (11.5-14.5)
[2017-07-07 19:24] LABS: ALB/GLOB RATIO 1.4 (1.1-1.8); ALBUMIN 4.3 g/dL (3.0-4.8); ALT/SGPT 24 U/L (7-56); AST/SGOT 25 U/L (17-59); BLOOD UREA NITROGEN 15 mg/dL (7-21); CALCIUM 9.4 mg/dL (8.4-10.5); GFR AFRICAN-AMERICAN > 60; GFR NON-AFRICAN AMERICAN > 60
[2017-07-07 19:26] LABS: URINE BILIRUBIN NEGATIVE (NEGATIVE); URINE BLOOD LARGE (NEGATIVE); URINE GLUCOSE (UA) NEGATIVE (NEGATIVE); URINE LEUKOCYTE ESTERASE NEGATIVE Leu/uL (NEGATIVE); URINE PROTEIN TRACE mg/dL (<30 mg/dL); URINE UROBILINOGEN 0.2 E.U./dL (<1 E.U./dL)
[2017-07-07 19:27] LABS: URINE APPEARANCE SL CLOUDY (CLEAR); URINE COLOR YELLOW (YELLOW)
--- NOTE | 2017-07-07 19:31 | CT ---
EXAM: CT Abdomen and Pelvis Without Intravenous Contrast CLINICAL HISTORY: 31 years old, male; Pain; Abdominal pain; Flank; Left; Patient HX: HX of rt renal disease; Additional info: Left flank pain TECHNIQUE: Axial computed tomography images of the abdomen and pelvis without intravenous contrast. All CT scans at this facility use one or more dose reduction techniques, viz.: automated exposure control; ma/kV adjustment per patient size (including targeted exams where dose is matched to indication; i.e. head); or iterative reconstruction technique. Coronal and sagittal reformatted images were created and reviewed. COMPARISON: CT - PELVIS W/O CONTRAST 2017-03-29 21:32 FINDINGS: Limitations: Lack of intravenous contrast. Motion artifact - mild. Lower thorax: Minimal atelectasis/scarring. ABDOMEN: Liver: Unremarkable. Gallbladder and bile ducts: No calcified stones. No ductal dilation. Pancreas: Unremarkable. No ductal dilation. Spleen: No splenomegaly. Adrenals: No mass. Kidneys and ureters: Small calculus within RIGHT kidney. No hydronephrosis. Stomach and bowel: Segmental areas of probable underdistention of LEFT colon. No definite mural thickening. No obstruction. Appendix: No findings to suggest acute appendicitis. PELVIS: Bladder: Unremarkable. No stones. Reproductive: Unremarkable as visualized. ABDOMEN and PELVIS: Intraperitoneal space: No significant fluid collection. No free air. Bones/joints: No acute fracture. Soft tissues: Minimal gynecomastia. Tiny umbilical hernia containing fat. Vasculature: Unremarkable. No aneurysm. Lymph nodes: No pathologically enlarged lymph nodes. IMPRESSION: 1. Nonobstructing renal calculus. 2. Incidental/non-acute findings are described above.
[2017-07-07 19:33] LABS: URINE BACTERIA FEW (NEG); URINE CALCIUM OXALATE CRYSTALS MANY /hpf; URINE WBC 0 - 2 /hpf (0-6)
== END 2017-07-07 20:03 | disposition home or self-care (01) ==
LOC: ED 17:25
DX: R10.9 Unspecified abdominal pain (principal)
CPT/HCPCS: 74176; 80053; 81001; 85025; 96374; 99283; J1885